=== PATIENT | female | born 1985 | race Caucasian/White ===

== ENCOUNTER 2022-10-25 06:18 | Day surgery (SDC) | payer BC ==
[~2022-10-25 06:18] MED LIST: Lactated Ringers 1,000 ML IV SCH; Lidocaine 1%/Sod Bicarbonate in NS 8.4% 1 ML Syringe IDERM PRN; Sodium Chloride 0.9% 10 ML Syringe FLUSH PRN; Sodium Chloride 0.9% 10 ML Syringe FLUSH SCH
[2022-10-25] MEDS ORDERED: Midazolam 1 MG/ML 2 ML SDV ONE (06:44)
[2022-10-25] MEDS ORDERED: fentaNYL 100 MCG/2 ML SDV ONE (06:44)
[2022-10-25] MEDS ORDERED: Propofol 200 MG/20 ML SDV ONE (06:45)
[2022-10-25] MEDS ORDERED: Lidocaine 1% 2 ML ONE (06:46)
[2022-10-25] MEDS ORDERED: Bupivacaine 0.5%/EPINEPHrine 1:200,000 50 ML MDV ONE (06:53)
[2022-10-25] MEDS ORDERED: Lidocaine 1% 30 ML SDV ONE (06:53)
[2022-10-25] MEDS ORDERED: ceFAZolin 2 GM Vial ONE (07:22)
== END 2022-10-25 08:47 | disposition home or self-care (01) ==
LOC: JD.SDS 06:18
PROVIDERS: ATTEND Surgery
DX: R22.41 Localized swelling, mass and lump, right lower limb (principal); E55.9 Vitamin D deficiency, unspecified; R63.4 Abnormal weight loss; Z79.899 Other long term (current) drug therapy; Z90.49 Acquired absence of other specified parts of digestive tract; Z98.890 Other specified postprocedural states; Z87.891 Personal history of nicotine dependence; Z68.38 Body mass index [BMI] 38.0-38.9, adult; Z91.018 Allergy to other foods
CPT/HCPCS: 11406; J0690; J2250; J2704; J3010; J3490; J7120; 00400